=== PATIENT | female | born 1945 | race Caucasian/White ===

== ENCOUNTER 2016-12-11 21:45 | Emergency (ER) | payer MEDICARE, MEDICAID ==
[~2016-12-11] VITALS: Ht 157.4 cm; Wt 81.6 kg
--- NOTE | ~2016-12-11 | EKG ---
[place], [place] ELECTROCARDIOGRAM REPORT NAME: ROGERIO DICKERSON UNIT #: [id number] ROOM: DOCTOR: TRISTAN TRAN MD BIRTHDATE: [birth year] DOS: 12/11/2016 TIME: 2159 hours. FINDINGS: 1. Atrial paced rhythm with normal AV conduction. 2. Left ventricular hypertrophy. 3. Abnormal electrocardiogram. TRISTAN TRAN MD CM:EKGRPT:ELECTROCARDIOGRAM REPORT [id number] TRISTAN TRAN MD
[2016-12-11 22:20] LABS: BASO % 0.3 % (0.0-1.0); EOS # 0.2 10*3/uL (0.0-0.4); EOS % 1.8 % (1.0-4.0); HEMATOCRIT 41.1 % (37.0-47.0); HEMOGLOBIN 12.6 g/dl (12.0-16.0); LYMPH # 4.2 10*3/uL (1.3-4.4); LYMPH % 36.6 % (27.0-41.0); MEAN CELL VOLUME 88.8 fl (81.0-99.0); MEAN CORPUSCULAR HGB 27.2 pg (27.0-31.0); MEAN CORPUSCULAR HGB CONC 30.7 g/dl (33.0-37.0); MONO # 0.5 10*3/uL (0.1-1.0); MONO % 4.6 % (3.0-9.0); NEUT # 6.5 10*3/uL (2.3-7.9); NEUT % 56.5 % (47.0-73.0); PLATELET COUNT AUTOMATED 288 10*3/uL (130-400); RED BLOOD COUNT 4.63 10*6/uL (4.10-5.10); RED CELL DISTRI WIDTH 14.7 % (0-14.5); WHITE BLOOD COUNT 11.4 10*3/uL (4.8-10.8)
[2016-12-11 22:31] LABS: BUN 13 mg/dl (7-24); CARBON DIOXIDE 20 mmol/L (21-32); CHLORIDE 105 mmol/L (98-107); EST GLOM FILT AFRICAN AMERICAN > 60 ml/min; GLUCOSE 239 mg/dL (65-99); POTASSIUM 3.4 mmol/L (3.5-5.1); SODIUM 141 mmol/L (136-145)
[2016-12-11 22:34] LABS: ALBUMIN 3.1 gm/dl (3.1-4.5); ALKALINE PHOSPHATASE 98 U/L (45-117); BILIRUBIN, DIRECT < 0.1 mg/dL (0.0-0.2); BILIRUBIN, TOTAL 0.5 mg/dl (0.2-1.0); SGOT/AST 33 IU/L (3-35); SGPT/ALT 21 U/L (12-78); TOTAL PROTEIN 7.3 gm/dL (6.4-8.2)
[2016-12-11 22:36] LABS: TROPONIN I < 0.015 ng/ml (<0.045)
[2016-12-12 00:33] LABS: BILIRUBIN NEGATIVE (NEGATIVE); BLOOD 1+ (NEGATIVE); CLARITY SL CLOUDY (CLEAR); COLOR YELLOW (YELLOW); GLUCOSE NEGATIVE (NEGATIVE); KETONE TRACE (NEGATIVE); LEUKO ESTERASE NEGATIVE (NEGATIVE); NITRITE POSITIVE (NEGATIVE); PH 5.5 (5.0-9.0); PROTEIN 2+ (NEGATIVE); SPECIFIC GRAVITY >= 1.030 (1.005-1.030); UROBILINOGEN 0.2 E.U./dl (0.2-1.0)
[2016-12-12 00:48] LABS: URINE AMPHETAMINES < 1000 (1000ng/ml); URINE BARBITURATES < 200 (200ng/ml); URINE COCAINE < 300 (300ng/ml)
[2016-12-12 00:49] LABS: BACTERIA 2+; EPITHELIAL CELLS 30-35
[2016-12-12 00:50] LABS: URINE REFLEX COMMENT YES (NO)
== END 2016-12-12 02:00 | disposition short-term general hospital (02) ==
LOC: ED 21:45
PROVIDERS: Emergency Medicine Emergency Medical Services; Student in an Organized Health Care Education/Training Program
DX: R56.9 Unspecified convulsions (principal); Z88.6 Allergy status to analgesic agent; Z88.7 Allergy status to serum and vaccine; Z91.041 Radiographic dye allergy status; Z88.8 Allergy status to other drugs, medicaments and biological substances

== ENCOUNTER → 2017-02-10 | Outpatient (CLI) | payer MEDICARE, MEDICAID ==
--- NOTE | ~2017-02-10 | WRIGHTHP ---
[place], [place] PATIENT HISTORY AND PHYSICAL EXAM NAME: ROGERIO DICKERSON [facility] #: [id number] UNIT #: [id number] ROOM: DOCTOR: GT WHITE M.D. BIRTHDATE: [birth year] DOS: 02/10/2017 This is a new wound care evaluation. CHIEF COMPLAINT: Blistered wound on the left anterior leg. HISTORY OF PRESENT ILLNESS: This is a 71-year-old female with a history of atrial fibrillation, status post pacemaker, on chronic anticoagulation, who had bumped her left leg last Friday, not this past Friday, but the Friday before. She had apparently ran into a pole on Friday while she was at the [facility]. She shortly went to urgent care afterwards, was given antibiotics, she did not take them. She had x-rays done, which were negative for fracture and she continues to have burning pain of the anterior leg. She was seen by her PCP, which she is a new patient for Dr. Crook, was noted to have a blistered area on the left leg and was asked to followup in the [facility]. She said she has been using Neosporin on it now and a dry dressing. She says overall the area has definitely got smaller in general, but she continues to have some pain and swelling. PAST MEDICAL HISTORY: Significant for hypertension, she has a history of atrial fib, pacemaker. She has had a cataract. She has no peripheral vision on the left side. She has had GERD, CVA back in 2016 after stopping her anticoagulants for 3 days. She was going to get her colonoscopy done and ended up with a stroke with left-sided weakness. There is history of seizures. PAST SURGICAL HISTORY: She is status post pacemaker, right knee replacement, right wrist ORIF, right carpal tunnel, cataracts with lens implants bilaterally, tonsillectomy and umbilical fistula repair. FAMILY HISTORY: Significant for cancer in her siblings, heart and lung disease in her siblings and father. SOCIAL HISTORY: She is a nonsmoker. She is , does not drink alcohol, does not use drugs. ALLERGIES: HER CURRENT ALLERGIES ARE TO ASPIRIN, CORDARONE, IBUPROFEN, MORPHINE, AND MOTRIN. MEDICATIONS: As follows: She is on Lomotil one tablet as needed 4 times a day, metoprolol 50 p.o. b.i.d., Xarelto 10 mg daily, Percocet 1 tablet as needed every 4 hours 7.5/325, Aciphex 20 mg daily. REVIEW OF SYSTEMS: She said she still has trouble with her left side. The wound sometimes has been draining a little bit. She has been using Neosporin, it does burn and is staying at times as well. She denies any chest pains or shortness of breath, nausea, vomiting, abdominal pains, or diarrhea. She ambulates with a cane, but also uses a scooter as well, was in a scooter when she managed to bump her leg. PHYSICAL EXAMINATION: [place], [place] PATIENT HISTORY AND PHYSICAL EXAM NAME: ROGERIO DICKERSON UNIT #: [id number] ROOM: DOCTOR: GT WHITE M.D. BIRTHDATE: [birth year] VITAL SIGNS: Temperature 98.2, pulse of 60, respirations 18, blood pressure is 96/50. GENERAL: This is an alert, pleasant female in no acute distress, somewhat obese, pleasant and cooperative. HEENT: Her extraocular movements are intact. Sclerae anicteric. Oropharynx is clear. NECK: There is no JVD. LUNGS: Clear to auscultation. CARDIOVASCULAR: S1, S2, regular rate and rhythm. ABDOMEN: Morbidly obese, soft and nontender. EXTREMITIES: She has no edema on her right leg. Her left leg has some edema. There are lot of extensive ecchymotic areas. Her pedal pulses are palpable. Her toes are warm. There is good capillary refill. She has a blistered area on the left anterior tibia that is filled with some serosanguineous fluid. It does not appear to be acutely tender at this time. There is epidermoid cyst that just appears to still be intact, although it is not tense, it looks like lot of the fluid has drained on its own, but it is not acutely tender. It is measuring approximately 3.5 x 3 x 0.1. Wound #2 is more distal and is measuring 2.2 x 0.4 x 0.1 and it looks like healing area. Around this distal part of the wound, there is moderate erythema that is approximately about 3-4 inches away from this wound. It is more prominent in the distal part of the leg than the lower part. There is minimal erythema around the entire leg; however, there is no calf tenderness, but once again there is large ecchymosis present. I do not appreciate a definite lump or nodule anywhere today. ABIs were not done due to the patient's complaints of pain. No debridement was done. LABORATORY DATA: She has had blood work back in November and at that time, her white count was 11.4, hemoglobin was 12.6, hematocrit was 41.1, platelets were 288. BUN was 13, creatinine 1.0. Glucose was 239, that was in the evening. Her sodium was 141, potassium is 3.4. LFTs were within normal limits. ASSESSMENT AND PLAN: Contusion of the left leg with the blistered wound. Since the wound is not acutely tender, the blistered area is not acutely tender at this time. We will go ahead and try to keep it intact. We will use TheraHoney and a foam for these areas. There is distal wound on the leg, it is fairly superficial, it looks fairly clean, but there is some surrounding erythema, possible folliculitis, possible irritation from the Neosporin, so I would like to use TheraHoney and a foam on this as well. We can use a Tubigrip for edema control for now. We will put the patient on empiric Keflex 500 t.i.d. I did ask her to try to keep her leg elevated when she can, will use a Tubigrip for now as well. She has good peripheral pulses. We may want to hopefully either try to get an TOM on her at next visit or perhaps consider arterial Dopplers in the future as well. I do want her to stop the Neosporin, I think it is causing irritation around the distal wound. If the patient agrees to lab work, we will consider doing repeat chem-7 and a hemoglobin A1c when the next time she comes, she is not known to be diabetic. Follow up in one week. [place], [place] PATIENT HISTORY AND PHYSICAL EXAM NAME: ROGERIO DICKERSON UNIT #: [id number] ROOM: DOCTOR: GT WHITE M.D. BIRTHDATE: [birth year] GT WHITE MD CM:HISPHYS:PATIENT HISTORY AND PHYSICAL EXAMINATION [id number] 1546 GT WHITE M.D. 02/10/17 1545 interface
== END ==
LOC: WOUNDCARE 02-06 07:15
DX: S80.12XD Contusion of left lower leg, subsequent encounter (principal); S80.822D Blister (nonthermal), left lower leg, subsequent encounter; I48.91 Unspecified atrial fibrillation; I10 Essential (primary) hypertension; K21.9 Gastro-esophageal reflux disease without esophagitis; Z95.0 Presence of cardiac pacemaker; Z86.73 Personal history of transient ischemic attack (TIA), and cerebral infarction without residual deficits; Z79.01 Long term (current) use of anticoagulants; X58.XXXD Exposure to other specified factors, subsequent encounter

== ENCOUNTER → 2017-02-17 | Outpatient (CLI) | payer MEDICARE, MEDICAID | LOC: WOUNDCARE 02:04 | DX: S80.12XD Contusion of left lower leg, subsequent encounter (principal); S80.822D Blister (nonthermal), left lower leg, subsequent encounter; Z79.01 Long term (current) use of anticoagulants; X58.XXXD Exposure to other specified factors, subsequent encounter ==

== ENCOUNTER → 2017-02-25 | Outpatient (CLI) | payer MEDICARE, MEDICAID | END | disposition home or self-care (01) | LOC: US 03:06 | DX: S81.802A Unspecified open wound, left lower leg, initial encounter (principal); S80.822A Blister (nonthermal), left lower leg, initial encounter; M79.89 Other specified soft tissue disorders; X58.XXXA Exposure to other specified factors, initial encounter; Y93.89 Activity, other specified; Y92.89 Other specified places as the place of occurrence of the external cause; Y99.8 Other external cause status ==

== ENCOUNTER → 2017-03-04 | Outpatient (CLI) | payer MEDICARE, MEDICAID | LOC: WOUNDCARE 04:16 | DX: S80.12XD Contusion of left lower leg, subsequent encounter (principal); X58.XXXD Exposure to other specified factors, subsequent encounter ==

== ENCOUNTER 2018-02-08 21:59 | Emergency (ER) | payer OTHER ==
[~2018-02-08] VITALS: Ht 165.1 cm; Wt 86.2 kg
[2018-02-08 22:28] LABS: BASO % 0.2 % (0.0-1.0); EOS # 0.2 10*3/uL (0.0-0.4); EOS % 1.4 % (1.0-4.0); HEMATOCRIT 38.4 % (37.0-47.0); HEMOGLOBIN 11.7 g/dl (12.0-16.0); LYMPH # 1.8 10*3/uL (1.3-4.4); MEAN CELL VOLUME 87.3 fl (81.0-99.0); MEAN CORPUSCULAR HGB 26.6 pg (27.0-31.0); MEAN CORPUSCULAR HGB CONC 30.5 g/dl (33.0-37.0); MEAN PLATELET VOLUME 9.7 fl (9.6-12.3); MONO # 0.8 10*3/uL (0.1-1.0); MONO % 4.8 % (3.0-9.0); NEUT # 13.3 10*3/uL (2.3-7.9); NEUT % 82.1 % (47.0-73.0); PLATELET COUNT AUTOMATED 210 10*3/uL (130-400); RED CELL DISTRI WIDTH 14.9 % (0-14.5); WHITE BLOOD COUNT 16.2 10*3/uL (4.8-10.8)
[2018-02-08 22:45] LABS: ALBUMIN 3.1 gm/dl (3.1-4.5); ALKALINE PHOSPHATASE 114 U/L (45-117); BUN 11 mg/dl (7-24); CHLORIDE 105 mmol/L (98-107); CREATININE 0.78 mg/dL (0.55-1.02); POTASSIUM 3.9 mmol/L (3.5-5.1); SGOT/AST 20 IU/L (3-35); SGPT/ALT 18 U/L (12-78); SODIUM 141 mmol/L (136-145)
[2018-02-08 22:46] LABS: TROPONIN I < 0.015 ng/ml (<0.045)
[2018-02-08] MEDS ORDERED: LEVAQUIN750 M1 PO (23:34)
[2018-02-10] MEDS ORDERED: Lopressor25 MG PO (06:40)
[2018-02-10] MEDS ORDERED: NEURONTIN100 MG PO (06:41)
[2018-02-10] MEDS ORDERED: ACIPHEX20 MG PO (06:41)
[2018-02-10] MEDS ORDERED: PERCOCET 7.5-31 EACH PO (06:41)
[2018-02-10] MEDS ORDERED: PREDNISONE50 MG PO (07:09)
[2018-02-10] MEDS ORDERED: AUGMENTIN 875-875 MG PO (07:09)
[2018-02-10] MEDS ORDERED: AVPAK AZITHROM250 M1 PO (07:09)
== END 2018-02-09 00:25 | disposition home or self-care (01) ==
LOC: ED 21:59
PROVIDERS: Student in an Organized Health Care Education/Training Program
DX: R06.02 Shortness of breath (principal); J02.9 Acute pharyngitis, unspecified; R05 Cough; Z91.041 Radiographic dye allergy status; Z88.6 Allergy status to analgesic agent; Z88.5 Allergy status to narcotic agent; Z88.8 Allergy status to other drugs, medicaments and biological substances; Z98.51 Tubal ligation status; Z95.0 Presence of cardiac pacemaker

== ENCOUNTER 2018-02-10 06:31 | Emergency (ER) | payer OTHER ==
[~2018-02-10] VITALS: Wt 87.5 kg
[~2018-02-10 06:31] MED LIST: LEVAQUIN750 M1 PO
[2018-02-10] MEDS ORDERED: Lopressor25 MG PO (06:40)
[2018-02-10] MEDS ORDERED: NEURONTIN100 MG PO (06:41)
[2018-02-10] MEDS ORDERED: ACIPHEX20 MG PO (06:41)
[2018-02-10] MEDS ORDERED: PERCOCET 7.5-31 EACH PO (06:41)
[2018-02-10 06:51] LABS: BASO % 0.1 % (0.0-1.0); EOS # 0.1 10*3/uL (0.0-0.4); EOS % 0.6 % (1.0-4.0); HEMATOCRIT 40.8 % (37.0-47.0); HEMOGLOBIN 12.5 g/dl (12.0-16.0); LYMPH # 2.1 10*3/uL (1.3-4.4); LYMPH % 10.2 % (27.0-41.0); MEAN CELL VOLUME 87.6 fl (81.0-99.0); MEAN CORPUSCULAR HGB 26.8 pg (27.0-31.0); MEAN CORPUSCULAR HGB CONC 30.6 g/dl (33.0-37.0); MEAN PLATELET VOLUME 9.7 fl (9.6-12.3); MONO # 1.3 10*3/uL (0.1-1.0); MONO % 6.3 % (3.0-9.0); NEUT % 82.3 % (47.0-73.0); PLATELET COUNT AUTOMATED 239 10*3/uL (130-400); RED BLOOD COUNT 4.66 10*6/uL (4.10-5.10); RED CELL DISTRI WIDTH 15.1 % (0-14.5); WHITE BLOOD COUNT 20.7 10*3/uL (4.8-10.8)
[2018-02-10 07:00] LABS: ACT PARTIAL THROMBO TIME 24.6 SECONDS (20.8-31.5); INTERNATIONAL NORM RATIO 0.9 (2.0-3.5)
[2018-02-10 07:08] LABS: ALBUMIN 3.2 gm/dl (3.1-4.5); ALKALINE PHOSPHATASE 116 U/L (45-117); BUN 20 mg/dl (7-24); CHLORIDE 107 mmol/L (98-107); POTASSIUM 3.9 mmol/L (3.5-5.1); SGOT/AST 31 IU/L (3-35); SGPT/ALT 22 U/L (12-78); SODIUM 141 mmol/L (136-145); TOTAL PROTEIN 7.3 gm/dL (6.4-8.2)
[2018-02-10] MEDS ORDERED: AVPAK AZITHROM250 M1 PO (07:09)
[2018-02-10] MEDS ORDERED: PREDNISONE50 MG PO (07:09)
[2018-02-10] MEDS ORDERED: AUGMENTIN 875-875 MG PO (07:09)
[2018-02-10 07:18] LABS: TROPONIN I < 0.015 ng/ml (<0.045)
== END 2018-02-10 08:48 | disposition left against medical advice (07) ==
LOC: ED 06:31
PROVIDERS: Student in an Organized Health Care Education/Training Program
DX: A41.9 Sepsis, unspecified organism (principal); J18.9 Pneumonia, unspecified organism; J44.9 Chronic obstructive pulmonary disease, unspecified; Z91.041 Radiographic dye allergy status; Z88.6 Allergy status to analgesic agent; Z88.8 Allergy status to other drugs, medicaments and biological substances; Z88.7 Allergy status to serum and vaccine; Z79.899 Other long term (current) drug therapy

== ENCOUNTER → 2019-03-09 | Outpatient (CLI) | payer MEDICARE ==
[~2019-03-09] MED LIST changes: +ACIPHEX20 MG PO; +AUGMENTIN 875-875 MG PO; +AVPAK AZITHROM250 M1 PO; +Lopressor25 MG PO; +NEURONTIN100 MG PO; +PERCOCET 7.5-31 EACH PO; +PREDNISONE10 MG PO; +PREDNISONE50 MG PO; +PROAIR HFA8.5 GM INH
--- NOTE | ~2019-03-09 | PF ---
[place], [place] PULMONARY FUNCTION TEST NAME: ROGERIO DICKERSON UNIT #: [id number] ROOM: DOCTOR: MARITA LOVE MD,LORENA BIRTHDATE: [birth year] DOS: 03/09/2019 Spirometry bronchodilator and lung diffusion. ORDERED BY: Dr. Tamica Meléndez. HISTORY: The patient recorded as a 73-year-old female, height of 64 inches, weight of 192 pounds with BMI 33. The patient reported nonproductive cough and shortness of breath with exertion, rare wheezing. There was no past tobacco use. SPIROMETRY: FVC recorded as 1.60 liters at 57% predicted value, FEV1 of 1.33 liters, 61% predicted value. Ratio of FEV1/FVC is 83%. Post-bronchodilator, no improvement noted. Flow volume was suggestive of restrictive airway pattern. LUNG VOLUME: Recorded 74%. Airway resistance and passive conductance could not be completed by the patient effectively. FINAL IMPRESSION: Current study was noted with evidence of moderate reduction of FEV1/FVC would be considered nonspecific. However, restrictive lung disease, the patient should be considered excluded by the pulmonary function test for the lung volumes and correlate clinical history and radiology data. LORENA KIRKLAND MD CM:PFREPORT:PULMONARY FUNCTION TEST [id number] 0101 LORENA LOVE MD
== END | disposition home or self-care (01) ==
LOC: PC 09:03 → CP 09:03
DX: R06.02 Shortness of breath (principal)

== ENCOUNTER 2019-07-05 18:38 | Inpatient (IN) | payer MEDICARE ==
[~2019-07-05] VITALS: Ht 162.6 cm; Wt 99.9 kg
--- NOTE | ~2019-07-05 | EKG ---
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
--- NOTE | ~2019-07-05 | EKG ---
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
--- NOTE | ~2019-07-05 | CON ---
[place], [place] REPORT OF CONSULTATION NAME: ROGERIO DICKERSON UNIT #: [id number] ROOM: 521 DOCTOR: OMID GOMEZ MD BIRTHDATE: [birth year] DOS: 07/06/2019 The patient is well known to me. REASON FOR CONSULTATION: Shortness of breath. HISTORY OF PRESENT ILLNESS: A 73-year-old female with a known history of atrial fibrillation, CVA, permanent pacemaker, tachybrady syndrome, admitted with increasing shortness of breath for the last 2 weeks. The patient states that also she has been having retaining fluid in her legs. Denies any chest discomfort, notes intermittent cough. No acute EKG changes, there is suggestion of myocardial injury. Chest x-ray interpreted shows no acute process. PAST MEDICAL HISTORY: Atrial fibrillation, CVA, hypertension, herniated disk, pneumonia and seizure, tachybrady syndrome. PAST SURGICAL HISTORY: Permanent pacemaker, and knee surgery. SOCIAL HISTORY: Denies any alcohol or tobacco. FAMILY HISTORY: Positive for coronary artery disease. HOME MEDICATIONS: Includes metoprolol, rivaroxaban. REVIEW OF SYSTEMS: CONSTITUTIONAL: Positive for weight gain. HEENT: No visual disturbances or hearing problems. CARDIOVASCULAR: Complains of leg edema. No chest pain. RESPIRATORY: Does have shortness of breath, dyspnea on exertion and positive wheezing. GASTROINTESTINAL: No nausea, no vomiting. GENITOURINARY: No dysuria. PHYSICAL EXAMINATION: VITAL SIGNS: Blood pressure today is 160/80, intermittent paced rhythm, underlying atrial fibrillation. HEENT: Elevated JVD. LUNGS: Diminished breath sounds. HEART: Sounds are regular. ABDOMEN: Soft, nontender. EXTREMITIES: About 2+ edema. LABORATORY DATA: Shows troponins are negative. BNP is 4930. Sodium 136, potassium 5.3, creatinine is 1. Liver functions are normal. Troponin is negative. INR is 1.1. Hemoglobin 10.8, hematocrit 36.8. Chest x-ray is normal. EKG intermittent paced rhythm. IMPRESSION: The patient with combined systolic/diastolic heart failure, hypertension, hyperlipidemia, atrial fibrillation, chronic. [place], [place] REPORT OF CONSULTATION NAME: ROGERIO DICKERSON UNIT #: [id number] ROOM: 521 DOCTOR: OMID GOMEZ MD BIRTHDATE: [birth year] RECOMMENDATIONS: Continue the present medications. Strict I's and O's. IV diuretics and we will get an echocardiogram and I will follow up. OMID GOMEZ MD CM:CONSTR:REPORT OF CONSULTATION 0708 07/06/19 1218 interface
--- NOTE | ~2019-07-05 | EKG ---
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
--- NOTE | ~2019-07-05 | PR ---
[place], [place] PROGRESS NOTE NAME: ROGERIO DICKERSON UNIT #: [id number] ROOM: 521 DOCTOR: OMID GOMEZ MD BIRTHDATE: [birth year] DOS: SUBJECTIVE: The patient was seen yesterday by me. The patient is being evaluated. She had an 8 beat run of ventricular tachycardia, asymptomatic. Blood pressure and heart rate within normal limits. Cardiac enzymes have been negative. She is diuresing quite well. Shortness of breath is somewhat better. REVIEW OF SYSTEMS: A 6-8 systems reviewed, stable. OBJECTIVE: VITAL SIGNS: Blood pressure is 120/60. She is in sinus rhythm. HEENT: Elevated JVD. LUNGS: Diminished breath sounds. HEART: Sounds are irregularly irregular. ABDOMEN: Soft, nontender. EXTREMITIES: About 2+ edema. NEUROLOGIC: Stable. The patient has intermittent paced rhythm. LABORATORY DATA: Sodium 142, potassium 3.5, creatinine is 0.9, hemoglobin 10.4, hematocrit 36. Nasal influenza type A has been done. IMPRESSION: Severe shortness of breath, probable diastolic heart failure, COPD, permanent pacemaker, renal failure, diabetes mellitus, asymptomatic bacteriuria, paroxysmal atrial fibrillation. RECOMMENDATIONS: Continue the IV Lasix. Strict I's and O's, probably once the lung status gets better, consideration should be given to do a stress test that can be done as an outpatient and we will follow up. OMID GOMEZ MD CM:PNTRANS [id number] OMID GOMEZ MD 07/07/19 2339 interface
[2019-07-05 18:40] VITALS: BP 148/59
[2019-07-05 18:55] LABS: BASO % 0.2 % (0.0-1.0); HEMATOCRIT 36.3 % (37.0-47.0); HEMOGLOBIN 10.8 g/dl (12.0-16.0); LYMPH # 1.3 10*3/uL (1.3-4.4); LYMPH % 9.9 % (27.0-41.0); MEAN CELL VOLUME 85.4 fl (81.0-99.0); MEAN CORPUSCULAR HGB 25.4 pg (27.0-31.0); MEAN CORPUSCULAR HGB CONC 29.8 g/dl (33.0-37.0); MEAN PLATELET VOLUME 10.3 fl (9.6-12.3); MONO # 0.5 10*3/uL (0.1-1.0); MONO % 4.1 % (3.0-9.0); NEUT % 85.4 % (47.0-73.0); PLATELET COUNT AUTOMATED 281 10*3/uL (130-400); RED BLOOD COUNT 4.25 10*6/uL (4.10-5.10); WHITE BLOOD COUNT 12.8 10*3/uL (4.8-10.8)
[2019-07-05 19:09] LABS: ACT PARTIAL THROMBO TIME 30.2 SECONDS (20.0-32.1); INTERNATIONAL NORM RATIO 1.1 (2.0-3.5)
[2019-07-05 19:15] LABS: ALBUMIN 3.1 gm/dl (3.1-4.5); ALKALINE PHOSPHATASE 96 U/L (45-117); BUN 22 mg/dl (7-24); CHLORIDE 103 mmol/L (98-107); CREATININE 1.03 mg/dL (0.55-1.02); POTASSIUM 5.3 mmol/L (3.5-5.1); SGOT/AST 65 IU/L (3-35); SGPT/ALT 37 U/L (12-78); SODIUM 136 mmol/L (136-145); TOTAL PROTEIN 7.3 gm/dL (6.4-8.2); TROPONIN I < 0.015 ng/ml (<0.045)
[2019-07-05 19:23] LABS: BILIRUBIN NEGATIVE (NEGATIVE); BLOOD 1+ (NEGATIVE); CLARITY CLEAR (CLEAR); COLOR YELLOW (YELLOW); GLUCOSE 3+ (NEGATIVE); KETONE NEGATIVE (NEGATIVE); LEUKO ESTERASE NEGATIVE (NEGATIVE); NITRITE NEGATIVE (NEGATIVE); UROBILINOGEN 0.2 E.U./dl (0.2-1.0)
[2019-07-05 19:34] LABS: BACTERIA TRACE
[2019-07-05 20:15] VITALS: BP 151/82
[2019-07-05 21:16] VITALS: BP 157/104
[2019-07-05 22:37] VITALS: BP 160/84
[2019-07-06] MEDS ORDERED: XARELTO10 MG PO (01:07)
[2019-07-06 01:50] LABS: BASO % 0.2 % (0.0-1.0); EOS % 0.1 % (1.0-4.0); HEMATOCRIT 36.2 % (37.0-47.0); HEMOGLOBIN 10.5 g/dl (12.0-16.0); LYMPH # 2.4 10*3/uL (1.3-4.4); LYMPH % 19.3 % (27.0-41.0); MEAN CELL VOLUME 84.8 fl (81.0-99.0); MEAN CORPUSCULAR HGB 24.6 pg (27.0-31.0); MEAN PLATELET VOLUME 10.1 fl (9.6-12.3); MONO # 0.6 10*3/uL (0.1-1.0); MONO % 4.6 % (3.0-9.0); NEUT # 9.4 10*3/uL (2.3-7.9); NEUT % 75.5 % (47.0-73.0); PLATELET COUNT AUTOMATED 312 10*3/uL (130-400); RED BLOOD COUNT 4.27 10*6/uL (4.10-5.10); RED CELL DISTRI WIDTH 17.1 % (0-14.5); WHITE BLOOD COUNT 12.4 10*3/uL (4.8-10.8)
[2019-07-06 02:05] LABS: ALBUMIN 3.2 gm/dl (3.1-4.5); CREATININE 1.14 mg/dL (0.55-1.02); PHOSPHOROUS 3.5 mg/dL (2.5-4.9)
[2019-07-06 02:11] LABS: THYROID STIM HORMONE (HS) 1.85 uIU/ml (0.358-4.75)
[2019-07-06 07:41] VITALS: BP 154/76
[2019-07-06 07:59] LABS: VITAMIN D, 25-HYDROXY 15.9 ng/mL (30-100)
[2019-07-06 10:53] VITALS: BP 147/81
[2019-07-06 11:43] VITALS: BP 114/79
[2019-07-06 16:00] VITALS: BP 119/73
[2019-07-06 20:00] VITALS: BP 126/78
[2019-07-07] VITALS: BP 120/64
[2019-07-07 07:45] LABS: BASO # 0.1 10*3/uL (0.0-0.1); BASO % 0.5 % (0.0-1.0); EOS # 0.2 10*3/uL (0.0-0.4); EOS % 1.6 % (1.0-4.0); HEMOGLOBIN 10.4 g/dl (12.0-16.0); LYMPH # 3.5 10*3/uL (1.3-4.4); LYMPH % 27.8 % (27.0-41.0); MEAN CELL VOLUME 85.5 fl (81.0-99.0); MEAN CORPUSCULAR HGB 24.7 pg (27.0-31.0); MEAN CORPUSCULAR HGB CONC 28.9 g/dl (33.0-37.0); MEAN PLATELET VOLUME 9.9 fl (9.6-12.3); MONO # 0.7 10*3/uL (0.1-1.0); MONO % 5.2 % (3.0-9.0); NEUT # 8.1 10*3/uL (2.3-7.9); NEUT % 64.6 % (47.0-73.0); PLATELET COUNT AUTOMATED 286 10*3/uL (130-400); RED BLOOD COUNT 4.21 10*6/uL (4.10-5.10); RED CELL DISTRI WIDTH 17.2 % (0-14.5); WHITE BLOOD COUNT 12.6 10*3/uL (4.8-10.8)
[2019-07-07 08:00] VITALS: BP 122/78
[2019-07-07 08:04] LABS: BUN 21 mg/dl (7-24); CHLORIDE 106 mmol/L (98-107); CREATININE 0.89 mg/dL (0.55-1.02); POTASSIUM 3.5 mmol/L (3.5-5.1); SODIUM 142 mmol/L (136-145)
[2019-07-07 12:11] VITALS: BP 118/68
[2019-07-07 16:00] VITALS: BP 120/74
[2019-07-07 20:00] VITALS: BP 103/55
[2019-07-08] VITALS: BP 122/58
[2019-07-08] MEDS ORDERED: VITAMIN D32000 UNI1 PO (12:07)
[2019-07-08] MEDS ORDERED: Lopressor25 MG PO (12:07)
[2019-07-08] MEDS ORDERED: LASIX20 MG PO (12:07)
[2019-07-08] MEDS ORDERED: LANTUS SOL100 UNIT/1 SQ (12:11)
[2019-07-08] MEDS ORDERED: HUMALOG100 UNIT/1 SQ (12:11)
[2019-07-08] MEDS ORDERED: KLOR-CON M1010 ME1 PO (12:12)
== END 2019-07-08 13:33 | disposition home or self-care (01) | DRG 291 ==
LOC: ED 18:38 → EDHOLD 21:17 → 5E 21:17 → EDHOLD 07-06 08:05 → 5E 07-06 11:45
PROVIDERS: Emergency Medicine; Internal Medicine; Physician Assistant; Student in an Organized Health Care Education/Training Program; ADMIT Family Medicine
DX: I11.0 Hypertensive heart disease with heart failure (principal); N17.0 Acute kidney failure with tubular necrosis; R65.10 Systemic inflammatory response syndrome (SIRS) of non-infectious origin without acute organ dysfunction; E87.2 Acidosis; D68.59 Other primary thrombophilia; I50.43 Acute on chronic combined systolic (congestive) and diastolic (congestive) heart failure; F41.9 Anxiety disorder, unspecified; I49.5 Sick sinus syndrome; K21.9 Gastro-esophageal reflux disease without esophagitis; M19.90 Unspecified osteoarthritis, unspecified site; R00.0 Tachycardia, unspecified; D72.825 Bandemia; D64.9 Anemia, unspecified; E87.5 Hyperkalemia; E11.65 Type 2 diabetes mellitus with hyperglycemia; E55.9 Vitamin D deficiency, unspecified; R82.71 Bacteriuria; R80.9 Proteinuria, unspecified; R31.21 Asymptomatic microscopic hematuria; I48.0 Paroxysmal atrial fibrillation; E78.5 Hyperlipidemia, unspecified; R94.31 Abnormal electrocardiogram [ECG] [EKG]; Z66 Do not resuscitate; Z51.5 Encounter for palliative care; Z86.73 Personal history of transient ischemic attack (TIA), and cerebral infarction without residual deficits; I25.2 Old myocardial infarction; Z95.0 Presence of cardiac pacemaker; Z87.01 Personal history of pneumonia (recurrent); Z91.041 Radiographic dye allergy status; Z88.8 Allergy status to other drugs, medicaments and biological substances; Z88.6 Allergy status to analgesic agent; Z79.899 Other long term (current) drug therapy; Z98.42 Cataract extraction status, left eye; Z98.41 Cataract extraction status, right eye; Z84.89 Family history of other specified conditions; Z98.51 Tubal ligation status; Z82.49 Family history of ischemic heart disease and other diseases of the circulatory system

== ENCOUNTER 2019-08-14 08:29 | Emergency (ER) | payer MEDICARE ==
[~2019-08-14] VITALS: Ht 162.5 cm; Wt 87.1 kg
[~2019-08-14 08:29] MED LIST changes: +HUMALOG100 UNIT/1 SQ; +KLOR-CON M1010 ME1 PO; +LANTUS SOL100 UNIT/1 SQ; +LASIX20 MG PO; +VITAMIN D32000 UNI1 PO; +XARELTO10 MG PO
[2019-08-14 09:08] LABS: BASO # 0.1 10*3/uL (0.0-0.1); BASO % 0.4 % (0.0-1.0); EOS # 0.1 10*3/uL (0.0-0.4); EOS % 0.8 % (1.0-4.0); HEMATOCRIT 32.3 % (37.0-47.0); HEMOGLOBIN 9.2 g/dl (12.0-16.0); LYMPH # 1.3 10*3/uL (1.3-4.4); LYMPH % 10.2 % (27.0-41.0); MEAN CELL VOLUME 82.6 fl (81.0-99.0); MEAN CORPUSCULAR HGB 23.5 pg (27.0-31.0); MEAN CORPUSCULAR HGB CONC 28.5 g/dl (33.0-37.0); MEAN PLATELET VOLUME 10.2 fl (9.6-12.3); MONO # 1.4 10*3/uL (0.1-1.0); MONO % 10.9 % (3.0-9.0); NEUT # 9.8 10*3/uL (2.3-7.9); NEUT % 77.4 % (47.0-73.0); PLATELET COUNT AUTOMATED 298 10*3/uL (130-400); RED BLOOD COUNT 3.91 10*6/uL (4.10-5.10); RED CELL DISTRI WIDTH 17.3 % (0-14.5); WHITE BLOOD COUNT 12.7 10*3/uL (4.8-10.8)
[2019-08-14 09:24] LABS: ALKALINE PHOSPHATASE 77 U/L (45-117); BUN 25 mg/dl (7-24); CHLORIDE 107 mmol/L (98-107); CREATININE 0.95 mg/dL (0.55-1.02); POTASSIUM 3.9 mmol/L (3.5-5.1); SGOT/AST 25 IU/L (3-35); SGPT/ALT 18 U/L (12-78); SODIUM 140 mmol/L (136-145); TOTAL PROTEIN 6.5 gm/dL (6.4-8.2)
== END 2019-08-14 10:36 | disposition home or self-care (01) ==
LOC: ED 08:29
PROVIDERS: Emergency Medicine
DX: M79.605 Pain in left leg (principal); I48.91 Unspecified atrial fibrillation; M19.90 Unspecified osteoarthritis, unspecified site; E11.9 Type 2 diabetes mellitus without complications; I11.0 Hypertensive heart disease with heart failure; I50.9 Heart failure, unspecified; K21.9 Gastro-esophageal reflux disease without esophagitis; Z91.041 Radiographic dye allergy status; Z88.8 Allergy status to other drugs, medicaments and biological substances; Z79.82 Long term (current) use of aspirin; Z88.6 Allergy status to analgesic agent; Z88.7 Allergy status to serum and vaccine; Z79.899 Other long term (current) drug therapy; Z86.73 Personal history of transient ischemic attack (TIA), and cerebral infarction without residual deficits

== ENCOUNTER 2019-08-27 19:29 | Emergency (ER) | payer MEDICARE ==
[~2019-08-27] VITALS: Ht 160 cm; Wt 90.7 kg
[2019-08-27 20:11] LABS: BASO # 0.1 10*3/uL (0.0-0.1); BASO % 0.7 % (0.0-1.0); EOS # 0.2 10*3/uL (0.0-0.4); HEMOGLOBIN 9.3 g/dl (12.0-16.0); LYMPH # 1.8 10*3/uL (1.3-4.4); MEAN CELL VOLUME 82.7 fl (81.0-99.0); MEAN CORPUSCULAR HGB 23.3 pg (27.0-31.0); MEAN CORPUSCULAR HGB CONC 28.2 g/dl (33.0-37.0); MEAN PLATELET VOLUME 9.2 fl (9.6-12.3); MONO # 0.8 10*3/uL (0.1-1.0); MONO % 10.3 % (3.0-9.0); NEUT # 4.5 10*3/uL (2.3-7.9); NEUT % 61.9 % (47.0-73.0); PLATELET COUNT AUTOMATED 283 10*3/uL (130-400); RED BLOOD COUNT 3.99 10*6/uL (4.10-5.10); RED CELL DISTRI WIDTH 17.7 % (0-14.5); WHITE BLOOD COUNT 7.4 10*3/uL (4.8-10.8)
[2019-08-27 20:27] LABS: ALBUMIN 2.7 gm/dl (3.1-4.5); ALKALINE PHOSPHATASE 74 U/L (45-117); BUN 23 mg/dl (7-24); CHLORIDE 110 mmol/L (98-107); CREATININE 1.13 mg/dL (0.55-1.02); POTASSIUM 3.7 mmol/L (3.5-5.1); SGOT/AST 26 IU/L (3-35); SGPT/ALT 20 U/L (12-78); SODIUM 145 mmol/L (136-145); TOTAL PROTEIN 6.1 gm/dL (6.4-8.2)
[2019-08-27 20:29] LABS: TROPONIN I < 0.015 ng/ml (<0.045)
[2019-08-27 20:32] LABS: ACT PARTIAL THROMBO TIME 36.1 SECONDS (20.0-32.1); INTERNATIONAL NORM RATIO 1.2 (2.0-3.5)
== END 2019-08-27 22:49 | disposition home or self-care (01) ==
LOC: ED 19:29
PROVIDERS: Emergency Medicine Emergency Medical Services
DX: I11.0 Hypertensive heart disease with heart failure (principal); I50.9 Heart failure, unspecified; I48.91 Unspecified atrial fibrillation; K21.9 Gastro-esophageal reflux disease without esophagitis; E11.9 Type 2 diabetes mellitus without complications; Z91.041 Radiographic dye allergy status; Z88.8 Allergy status to other drugs, medicaments and biological substances; Z88.6 Allergy status to analgesic agent; Z88.5 Allergy status to narcotic agent; Z88.7 Allergy status to serum and vaccine; Z79.899 Other long term (current) drug therapy; Z86.73 Personal history of transient ischemic attack (TIA), and cerebral infarction without residual deficits

== ENCOUNTER 2019-11-26 15:32 | Emergency (ER) | payer MEDICARE ==
[~2019-11-26] VITALS: Ht 162.5 cm; Wt 93.9 kg
[2019-11-26] MEDS ORDERED: PREDNISONE50 MG PO (16:20)
== END 2019-11-26 16:26 | disposition home or self-care (01) ==
LOC: ED 15:32
DX: L25.9 Unspecified contact dermatitis, unspecified cause (principal); I10 Essential (primary) hypertension; K21.9 Gastro-esophageal reflux disease without esophagitis; M19.90 Unspecified osteoarthritis, unspecified site; I48.91 Unspecified atrial fibrillation; Z91.041 Radiographic dye allergy status; Z88.8 Allergy status to other drugs, medicaments and biological substances; Z88.6 Allergy status to analgesic agent; Z88.7 Allergy status to serum and vaccine; Z88.5 Allergy status to narcotic agent; Z91.048 Other nonmedicinal substance allergy status; Z79.899 Other long term (current) drug therapy; Z79.4 Long term (current) use of insulin; Z98.890 Other specified postprocedural states; Z95.0 Presence of cardiac pacemaker; Z86.73 Personal history of transient ischemic attack (TIA), and cerebral infarction without residual deficits; Z96.651 Presence of right artificial knee joint

== ENCOUNTER 2019-12-02 21:17 | Emergency (ER) | payer MEDICARE ==
[~2019-12-02] VITALS: Ht 157.4 cm; Wt 110.7 kg
[2019-12-02 22:10] LABS: BASO # 0.1 10*3/uL (0.0-0.1); BASO % 0.5 % (0.0-1.0); EOS # 0.6 10*3/uL (0.0-0.4); EOS % 5.3 % (1.0-4.0); HEMATOCRIT 31.9 % (37.0-47.0); LYMPH # 1.5 10*3/uL (1.3-4.4); LYMPH % 13.3 % (27.0-41.0); MEAN CELL VOLUME 80.8 fl (81.0-99.0); MEAN CORPUSCULAR HGB CONC 27.3 g/dl (33.0-37.0); MEAN PLATELET VOLUME 9.5 fl (9.6-12.3); MONO # 1.3 10*3/uL (0.1-1.0); MONO % 11.5 % (3.0-9.0); NEUT # 7.6 10*3/uL (2.3-7.9); NEUT % 69.1 % (47.0-73.0); PLATELET COUNT AUTOMATED 293 10*3/uL (130-400); RED BLOOD COUNT 3.95 10*6/uL (4.10-5.10); RED CELL DISTRI WIDTH 19.9 % (0-14.5); WHITE BLOOD COUNT 11.1 10*3/uL (4.8-10.8)
[2019-12-02 22:27] LABS: ALBUMIN 2.9 gm/dl (3.1-4.5); ALKALINE PHOSPHATASE 84 U/L (45-117); BUN 10 mg/dl (7-24); CHLORIDE 110 mmol/L (98-107); CREATININE 0.78 mg/dL (0.55-1.02); POTASSIUM 3.5 mmol/L (3.5-5.1); SGOT/AST 28 IU/L (3-35); SGPT/ALT 22 U/L (12-78); SODIUM 143 mmol/L (136-145); TOTAL PROTEIN 6.6 gm/dL (6.4-8.2)
[2019-12-02 22:34] LABS: TROPONIN I < 0.015 ng/ml (<0.045)
[2019-12-03 00:18] LABS: BILIRUBIN NEGATIVE (NEGATIVE); BLOOD NEGATIVE (NEGATIVE); CLARITY CLEAR (CLEAR); COLOR YELLOW (YELLOW); GLUCOSE 3+ (NEGATIVE); KETONE NEGATIVE (NEGATIVE); LEUKO ESTERASE NEGATIVE (NEGATIVE); NITRITE NEGATIVE (NEGATIVE); UROBILINOGEN 0.2 E.U./dl (0.2-1.0)
== END 2019-12-03 08:12 | disposition home or self-care (01) ==
LOC: ED 21:17
PROVIDERS: Emergency Medicine
DX: R62.7 Adult failure to thrive (principal); I48.91 Unspecified atrial fibrillation; I11.0 Hypertensive heart disease with heart failure; I50.9 Heart failure, unspecified; E11.22 Type 2 diabetes mellitus with diabetic chronic kidney disease; K21.9 Gastro-esophageal reflux disease without esophagitis; Z95.0 Presence of cardiac pacemaker; Z88.8 Allergy status to other drugs, medicaments and biological substances; Z88.5 Allergy status to narcotic agent; Z79.899 Other long term (current) drug therapy

== ENCOUNTER 2019-12-03 11:04 | Emergency (ER) | payer MEDICARE ==
[2019-12-03 11:35] LABS: BASO # 0.1 10*3/uL (0.0-0.1); BASO % 0.6 % (0.0-1.0); EOS # 0.7 10*3/uL (0.0-0.4); EOS % 6.8 % (1.0-4.0); HEMATOCRIT 33.8 % (37.0-47.0); LYMPH # 1.3 10*3/uL (1.3-4.4); LYMPH % 12.2 % (27.0-41.0); MEAN CELL VOLUME 81.4 fl (81.0-99.0); MEAN CORPUSCULAR HGB 22.2 pg (27.0-31.0); MEAN CORPUSCULAR HGB CONC 27.2 g/dl (33.0-37.0); MEAN PLATELET VOLUME 9.6 fl (9.6-12.3); MONO # 1.4 10*3/uL (0.1-1.0); MONO % 12.7 % (3.0-9.0); NEUT # 7.3 10*3/uL (2.3-7.9); NEUT % 67.3 % (47.0-73.0); PLATELET COUNT AUTOMATED 309 10*3/uL (130-400); RED BLOOD COUNT 4.15 10*6/uL (4.10-5.10); RED CELL DISTRI WIDTH 20.4 % (0-14.5); WHITE BLOOD COUNT 10.9 10*3/uL (4.8-10.8)
[2019-12-03 11:50] LABS: ALBUMIN 3.2 gm/dl (3.1-4.5); ALKALINE PHOSPHATASE 94 U/L (45-117); BUN 9 mg/dl (7-24); CHLORIDE 111 mmol/L (98-107); CREATININE 0.94 mg/dL (0.55-1.02); SGOT/AST 28 IU/L (3-35); SGPT/ALT 24 U/L (12-78); SODIUM 148 mmol/L (136-145); TOTAL PROTEIN 7.1 gm/dL (6.4-8.2)
[2019-12-03 11:52] LABS: ETHYL ALCOHOL < 3.0 mg/dl (<3)
[2019-12-03 12:29] LABS: BILIRUBIN NEGATIVE (NEGATIVE); BLOOD TRACE-LYSED (NEGATIVE); CLARITY SL CLOUDY (CLEAR); COLOR YELLOW (YELLOW); GLUCOSE 3+ (NEGATIVE); KETONE NEGATIVE (NEGATIVE)
[2019-12-03 12:30] LABS: LEUKO ESTERASE NEGATIVE (NEGATIVE); NITRITE NEGATIVE (NEGATIVE)
[2019-12-03 12:35] LABS: URINE AMPHETAMINES < 1000 (1000ng/ml); URINE BARBITURATES < 200 (200ng/ml); URINE BENZODIAZEPINES < 200 (200ng/ml); URINE CANNABINOIDS (THC) < 50 (50ng/ml); URINE COCAINE < 300 (300ng/ml); URINE METHADONE < 300 (300ng/ml); URINE OPIATES < 300 (300ng/ml)
[2019-12-03 12:36] LABS: RBC 16-20 rbc/hpf (0-2); URINE PHENCYCLIDINE < 25 (25ng/ml)
[2019-12-03 12:38] LABS: BACTERIA TRACE
[2019-12-03 12:39] LABS: YEAST TRACE
== END 2019-12-03 18:30 ==
LOC: ED 11:04
PROVIDERS: Emergency Medicine
DX: E87.0 Hyperosmolality and hypernatremia (principal); I48.20 Chronic atrial fibrillation, unspecified; I63.9 Cerebral infarction, unspecified; I67.83 Posterior reversible encephalopathy syndrome; E11.9 Type 2 diabetes mellitus without complications; I48.91 Unspecified atrial fibrillation; M19.90 Unspecified osteoarthritis, unspecified site; I11.0 Hypertensive heart disease with heart failure; I50.9 Heart failure, unspecified; K21.9 Gastro-esophageal reflux disease without esophagitis; Z91.041 Radiographic dye allergy status; Z88.8 Allergy status to other drugs, medicaments and biological substances; Z88.6 Allergy status to analgesic agent; Z88.5 Allergy status to narcotic agent; Z88.7 Allergy status to serum and vaccine; Z79.899 Other long term (current) drug therapy; Z79.4 Long term (current) use of insulin; Z86.73 Personal history of transient ischemic attack (TIA), and cerebral infarction without residual deficits; Z95.0 Presence of cardiac pacemaker; Z98.51 Tubal ligation status; Z96.651 Presence of right artificial knee joint

== ENCOUNTER 2020-03-05 07:36 | Emergency (ER) | payer MEDICARE, MEDICAID ==
[~2020-03-05] VITALS: Ht 172.7 cm; Wt 72.8 kg
[2020-03-05 08:13] LABS: BASO % 0.4 % (0.0-1.0); EOS # 0.2 10*3/uL (0.0-0.4); EOS % 2.1 % (1.0-4.0); HEMATOCRIT 33.1 % (37.0-47.0); LYMPH # 1.3 10*3/uL (1.3-4.4); LYMPH % 13.2 % (27.0-41.0); MEAN CELL VOLUME 88.3 fl (81.0-99.0); MEAN CORPUSCULAR HGB 25.6 pg (27.0-31.0); MEAN PLATELET VOLUME 9.2 fl (9.6-12.3); MONO # 0.5 10*3/uL (0.1-1.0); MONO % 5.4 % (3.0-9.0); NEUT # 7.9 10*3/uL (2.3-7.9); NEUT % 78.5 % (47.0-73.0); PLATELET COUNT AUTOMATED 349 10*3/uL (130-400); RED BLOOD COUNT 3.75 10*6/uL (4.10-5.10); RED CELL DISTRI WIDTH 19.9 % (0-14.5)
[2020-03-05 08:28] LABS: ALBUMIN 2.8 gm/dl (3.1-4.5); CREATININE 1.36 mg/dL (0.55-1.02); POTASSIUM 4.1 mmol/L (3.5-5.1); TOTAL PROTEIN 6.9 gm/dL (6.4-8.2)
[2020-03-06] MEDS ORDERED: JARDIANCE25 MG PO (15:52)
[2020-03-06] MEDS ORDERED: LASIX40 MG PO (15:55)
[2020-03-06] MEDS ORDERED: LASIX20 MG PO (15:55)
== END 2020-03-05 11:58 | disposition home or self-care (01) ==
LOC: ED 07:36
PROVIDERS: Emergency Medicine
DX: F39 Unspecified mood [affective] disorder (principal); I10 Essential (primary) hypertension; M19.90 Unspecified osteoarthritis, unspecified site; K21.9 Gastro-esophageal reflux disease without esophagitis; I48.91 Unspecified atrial fibrillation; Z91.041 Radiographic dye allergy status; Z88.6 Allergy status to analgesic agent; Z88.7 Allergy status to serum and vaccine; Z91.018 Allergy to other foods; Z79.899 Other long term (current) drug therapy; Z86.73 Personal history of transient ischemic attack (TIA), and cerebral infarction without residual deficits

== ENCOUNTER 2020-03-06 08:01 | Inpatient (IN) | payer MEDICARE, MEDICAID ==
[2020-03-06 09:06] VITALS: BP 119/70
[2020-03-06 10:30] VITALS: BP 119/70
[2020-03-06 11:25] LABS: BASO # 0.1 10*3/uL (0.0-0.1); BASO % 0.5 % (0.0-1.0); EOS # 0.2 10*3/uL (0.0-0.4); EOS % 1.5 % (1.0-4.0); HEMATOCRIT 35.3 % (37.0-47.0); LYMPH # 1.9 10*3/uL (1.3-4.4); LYMPH % 17.8 % (27.0-41.0); MEAN CELL VOLUME 87.4 fl (81.0-99.0); MEAN CORPUSCULAR HGB 25.5 pg (27.0-31.0); MEAN CORPUSCULAR HGB CONC 29.2 g/dl (33.0-37.0); MEAN PLATELET VOLUME 9.4 fl (9.6-12.3); MONO # 0.7 10*3/uL (0.1-1.0); MONO % 6.5 % (3.0-9.0); NEUT # 7.7 10*3/uL (2.3-7.9); NEUT % 73.4 % (47.0-73.0); PLATELET COUNT AUTOMATED 393 10*3/uL (130-400); RED BLOOD COUNT 4.04 10*6/uL (4.10-5.10); RED CELL DISTRI WIDTH 19.7 % (0-14.5); WHITE BLOOD COUNT 10.5 10*3/uL (4.8-10.8)
[2020-03-06 12:01] LABS: ALBUMIN 3.2 gm/dl (3.1-4.5); CREATININE 1.1 mg/dL (0.55-1.02); POTASSIUM 3.5 mmol/L (3.5-5.1)
[2020-03-06 12:08] LABS: THYROID STIM HORMONE (HS) 1.46 uIU/ml (0.358-4.75); TOTAL PROTEIN 7.4 gm/dL (6.4-8.2)
[2020-03-06 12:22] LABS: VITAMIN D, 25-HYDROXY 44.1 ng/mL (30-100)
[2020-03-06] MEDS ORDERED: JARDIANCE25 MG PO (15:52)
[2020-03-06] MEDS ORDERED: LASIX20 MG PO (15:55)
[2020-03-06] MEDS ORDERED: LASIX40 MG PO (15:55)
[2020-03-06 20:00] VITALS: BP 130/71
[2020-03-07 07:50] VITALS: BP 129/69
[2020-03-07 19:34] VITALS: BP 131/72
[2020-03-07 22:10] LABS: BILIRUBIN NEGATIVE (NEGATIVE); BLOOD 3+ (NEGATIVE); CLARITY CLOUDY (CLEAR); COLOR YELLOW (YELLOW); GLUCOSE 3+ (NEGATIVE); KETONE NEGATIVE (NEGATIVE); LEUKO ESTERASE 2+ (NEGATIVE); NITRITE NEGATIVE (NEGATIVE); SPECIFIC GRAVITY 1.015 (1.005-1.030); UROBILINOGEN 0.2 E.U./dl (0.2-1.0)
[2020-03-07 22:18] LABS: WBC TNTC wbc/hpf (0-5)
[2020-03-08 06:54] LABS: ALBUMIN 2.7 gm/dl (3.1-4.5); BUN 19 mg/dl (7-24); CHLORIDE 114 mmol/L (98-107); POTASSIUM 3.9 mmol/L (3.5-5.1); SODIUM 147 mmol/L (136-145)
[2020-03-08 06:57] LABS: ALKALINE PHOSPHATASE 83 U/L (45-117); CREATININE 1.06 mg/dL (0.55-1.02); SGOT/AST 14 IU/L (3-35); SGPT/ALT 13 U/L (12-78); TOTAL PROTEIN 6.4 gm/dL (6.4-8.2)
[2020-03-08 07:38] VITALS: BP 119/83
[2020-03-08 19:47] VITALS: BP 130/88
[2020-03-09 07:36] VITALS: BP 110/54
[2020-03-09 19:34] VITALS: BP 124/61
[2020-03-10 07:47] VITALS: BP 113/66; BP 122/72
[2020-03-10 20:00] VITALS: BP 132/68
[2020-03-11 08:00] VITALS: BP 110/63
[2020-03-11 09:46] VITALS: BP 100/62
[2020-03-11 20:00] VITALS: BP 118/78
[2020-03-12 07:51] VITALS: BP 117/60
[2020-03-12 20:00] VITALS: BP 124/70
[2020-03-13 07:50] VITALS: BP 115/64
[2020-03-13 20:00] VITALS: BP 118/68
[2020-03-14 08:00] VITALS: BP 128/68
[2020-03-14 20:00] VITALS: BP 137/78
[2020-03-15 07:39] VITALS: BP 134/67
[2020-03-15 19:24] VITALS: BP 128/72
[2020-03-16 07:44] VITALS: BP 114/65
[2020-03-16 19:41] VITALS: BP 123/68
[2020-03-17 07:19] VITALS: BP 115/64
[2020-03-17] MEDS ORDERED: RIVASTIGMINE1 EAC2 T (09:06)
[2020-03-17] MEDS ORDERED: NEUDEXT PO (09:06)
[2020-03-17] MEDS ORDERED: HYDROXYZINE HCL25 MG PO (09:06)
[2020-03-17] MEDS ORDERED: RISPERIDONE0.5 MG PO (09:06)
[2020-03-17] MEDS ORDERED: VITAMIN D350 MC2 PO (09:07)
[2020-03-17] MEDS ORDERED: MEMANTINE HCL10 MG PO (09:16)
== END 2020-03-17 12:10 | disposition other institution (70) | DRG 56 ==
LOC: 3N 08:01
PROVIDERS: Registered Nurse; ADMIT Psychiatry & Neurology Psychiatry
PROC: 0HBRXZZ Excision of Toe Nail, External Approach (ICD-10-PCS; principal; 2020-03-09)
DX: G30.9 Alzheimer's disease, unspecified (principal); N17.0 Acute kidney failure with tubular necrosis; F23 Brief psychotic disorder; I50.32 Chronic diastolic (congestive) heart failure; I13.0 Hypertensive heart and chronic kidney disease with heart failure and stage 1 through stage 4 chronic kidney disease, or unspecified chronic kidney disease; D68.59 Other primary thrombophilia; F33.3 Major depressive disorder, recurrent, severe with psychotic symptoms; N18.3 Chronic kidney disease, stage 3 (moderate); I48.0 Paroxysmal atrial fibrillation; E11.65 Type 2 diabetes mellitus with hyperglycemia; E11.22 Type 2 diabetes mellitus with diabetic chronic kidney disease; K21.9 Gastro-esophageal reflux disease without esophagitis; I49.5 Sick sinus syndrome; R41.9 Unspecified symptoms and signs involving cognitive functions and awareness; F02.80 Dementia in other diseases classified elsewhere, unspecified severity, without behavioral disturbance, psychotic disturbance, mood disturbance, and anxiety; E11.621 Type 2 diabetes mellitus with foot ulcer; L97.519 Non-pressure chronic ulcer of other part of right foot with unspecified severity; B35.1 Tinea unguium; M19.90 Unspecified osteoarthritis, unspecified site; S91.002A Unspecified open wound, left ankle, initial encounter; X58.XXXA Exposure to other specified factors, initial encounter; Y93.89 Activity, other specified; Y92.89 Other specified places as the place of occurrence of the external cause; Y99.8 Other external cause status; Z95.0 Presence of cardiac pacemaker; Z87.01 Personal history of pneumonia (recurrent); Z98.51 Tubal ligation status; Z82.49 Family history of ischemic heart disease and other diseases of the circulatory system; Z86.73 Personal history of transient ischemic attack (TIA), and cerebral infarction without residual deficits; Z88.6 Allergy status to analgesic agent; Z91.041 Radiographic dye allergy status; Z88.5 Allergy status to narcotic agent; Z88.7 Allergy status to serum and vaccine; Z91.018 Allergy to other foods; Z79.899 Other long term (current) drug therapy; Z79.01 Long term (current) use of anticoagulants; Z03.818 Encounter for observation for suspected exposure to other biological agents ruled out